=== PATIENT | female | born 1990 | race Caucasian/White ===

== ENCOUNTER 2016-12-04 07:23 | Emergency (ER) | payer MEDICAID ==
[~2016-12-04] VITALS: Ht 167.6 cm; Wt 126.5 kg
[~2016-12-04 07:23] MED LIST: HYDR-3498 PO; IBUP400T22 PO; NPH10OT LEFT EAR; ONDA4TAB8 PO; PREN1TAB49 PO
[2016-12-04 07:26] VITALS: Ht 167.6 cm; Wt 126.5 kg
[2016-12-04] MEDS ORDERED: HC1C30 TOP (07:41)
[2016-12-04] MEDS ORDERED: BEN25 PO (07:41)
--- NOTE | 2016-12-04 07:44 | ERD ---
ER Documentation Chief Complaint Date/Time DATE: 12/04/16 TIME: 07:42 Chief Complaint arm burning and wart x 2 days HPI 26-year-old female states that she believes in size may have bit her on her left upper extremity right at her inner elbow she has a small rash there and has had some burning sensation in her arm since last night when this happened. Denies fever. Denies any bleeding or drainage. Denies any numbness or tingling. ROS All systems reviewed and are negative except as per history of present illness. Medications Home Meds Active Scripts Hydrocortisone* Topical (Hydrocortisone* Topical) 1%-28.35 Gm Cream..g., 1 APPLIC TOP Q6 Y for ITCHING, #1 TUB Prov:ALEKSANDAR JOHNSON PA-C 12/04/16 Diphenhydramine Hcl* (Benadryl*) 25 Mg Cap, 25 MG PO Q6, #30 CAP Prov:ALEKSANDAR JOHNSON PA-C 12/04/16 Hydrocodone Bit-Acetaminophen* ([place]*) 5-325 Mg Tab, 1 TAB PO Q6 Y for SEVERE PAIN LEVEL 7-10, #20 TAB Prov:LOURDES WAGNER NP 01/22/16 Ibuprofen* (Motrin*) 400 Mg Tab, 400 MG PO Q6 for 7 Days, #30 TAB 0 Refills Prov:ARSENIO FALCON PA-C 01/21/16 Neomycin/Polymyxin/Hydrocort* (Cortisporin* Otic) 10 Ml Susp, 4 DROP LEFT EAR QID for 7 Days, #1 BOTTLE 0 Refills Prov:ARSENIO FALCON PA-C 01/21/16 Ondansetron Hcl* (Zofran*) 4 Mg Tablet, 4 MG PO Q6H for NAUSEA AND/OR VOMITING, #30 TAB Prov:KOBE CLEMENS PA-C 07/06/15 Hydrocodone Bit-Acetaminophen* ([place]*) 5-325 Mg Tab, 1 TAB PO Q6 Y for PAIN, # 10 TAB Prov:KOBE CLEMENS PA-C 07/06/15 Reported Medications Vits W-Ca,Fe,Fa(<1MG) () 1 Tab Tablet, 1 TAB PO 05/04/12 Allergies Allergies: Coded Allergies: No Known Drug Allergies (Verified Allergy, 05/04/12) PMhx/Soc Medical and Surgical Hx: pt denies Medical Hx, pt denies Surgical Hx History of Surgery: No Anesthesia Reaction: No Hx Neurological Disorder: No Hx Respiratory Disorders: No Hx Cardiac Disorders: No Hx Psychiatric Problems: No Hx Miscellaneous Medical Probl: No Hx Alcohol Use: No Hx Substance Use: No Hx Tobacco Use: No FmHx Family History: No diabetes Physical Exam Vitals Vital Signs Date Time Temp Pulse Resp B/P Pulse Ox O2 Delivery O2 Flow Rate FiO2 12/04/16 07:26 97.2 72 18 119/78 96 Physical Exam General: well developed, well nourished, alert, nontoxic, no distress Head: normocephalic, atraumatic Neck: Supple, nontender, no lymphadenopathy, no midline tenderness Respiratory: Clear to auscaultation bilaterally, speaks in full sentences, no use of accesory muscles or labored breathing, no rales, ronchi, or wheezing Cardiovascular: RRR, No murmurs Extremities: moving all extremities normally, normal gait, no edema Skin: Left elbow inner fossa has small less than 1 cm faint macular papular lesion, no surrounding erythema, no warmth Procedures/MDM Patient presents with very small localized rash of the left upper extremity, possibly a bug bite however patient did not witness the actual bug bite. There is no evidence of infection. She is discharged with Benadryl and hydrocortisone cream. Recommended this patient follow up with her primary care doctor within 48 hours or return to the emergency room for any worsening of symptoms. However this time I do believe there is suitable for outpatient management. I answered all their questions and they agreed with the plan and were discharged home. Departure Diagnosis: Primary Impression: Rash Condition: Stable Patient Instructions: Self-Care for Skin Rashes Additional Instructions: Call your primary care doctor TOMORROW for an appointment during the next 1-2 days.See the doctor sooner or return here if your condition worsens before your appointment time. ALEKSANDAR JOHNSON PA-C December 04, 2016 07:44
== END 2016-12-04 08:08 | disposition home or self-care (01) ==
LOC: FTE 07:23
DX: R21 Rash and other nonspecific skin eruption (principal)
CPT/HCPCS: 99283

== ENCOUNTER 2018-06-22 11:33 | Emergency (ER) | END 2018-06-22 13:52 | disposition home or self-care (01) ==